=== PATIENT | male | born 1965 | race Caucasian/White ===

== ENCOUNTER 2021-02-03 13:30 | Outpatient (RCR) | payer OTHER, SELFPAY ==
--- NOTE | 2020-12-09 11:58 | OT.OP.EVAL ---
Visit Care Team Role Provider Type Indiana Jones MD Primary Care Provider Non-Staff Specialty: Medical Address: [address] [place], [address] Email: Rey Sharp MD Attending Provider Non-Staff Referring Provider Specialty: Neurology Address: [address] [place], [address] Email: Occupational Therapy Initial Evaluation OT Outpatient Adult Evaluation Start: 12/09/20 09:25 Freq: Status: Active Protocol: Document 12/09/20 09:26 AMS (Rec: 12/09/20 09:30 AMS [id number]) General Information Visit Start Time 08:30 Visit Stop Time 09:18 Total Visit Minutes 48 Plan of Care Dates 12/09/20-02/17/21 Insurance Information Prime Treatment Setting Outpatient Care Note Type Initial Evaluation Goals Treatment Initiated HEP. Written and visual instructions were provided. Instructed in passive digit/wrist flexor stretch with elbow ext and forearm supination (with focus on middle finger being in line with proximal forearm) and tendon glides. Short Term Goals 1. Patient will demonstrate improved ability to participate in meaningful activities d/t environmental modifications, use of compensatory techniques and/or adaptive equipment use; this will demonstrated by Luis's ability to verbally identify 2 to 3 different techniques/ strategies to support his ability to engage in meaningful activities in a variety of environments without support of therapist. 2. Patient will demonstrate improved ability to participate in meaningful activities d/t increased understanding of joint protection principles; this will be evidenced by Luis's verbalization of 100% understanding of joint protection principles referring to provided written/ visual materials by therapist. Support Team Assoc Goals 1. Patient will be modified independent with home exercise program utilizing provided written and visual instructions from therapist. Assessment/Plan Treatment Assessment Patient is a 55 year-old right hand dominant male referred to outpatient OT secondary to parethesia of skin and dystonia. Medical records indicate chronic paresthesia mainly involving right hand/ right thumb and muscle cramps involving the left hand with prior history of cervical spondylosis. Patient was indicated to have some features of carpal tunnel syndrome of the right and investment underwriter's cramp or hand dystonia of the left hand exacerbated by use. 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 Patient denied having EMG done and/or receiving notification of need to schedule EMG post seeing Dr. Le on September 17, 2020. Pain Assessment Grid indicated 3 out of 10 on pain scale relative to volar surface of the left hand. QuickDASH UE Outcome Score = 18.2; QuickDASH UE Work Module Score = 31.3; QuickDASH UE Sports/ Performing Arts Module Score = 37.5. Patient c/o of cramping of the left hand primarily with small object manipulation . Denial of use of splint; denial of waking up d/t right upper extremity pain/ discomfort. c/o left wrist discomfort w/ Phalen's; no report of change in sensation with reverse Phalen's. No changes reported with carpal ligament myofascial release or median nerve glide. UE shoulder ROM WNL; h/o of stiff L shoulder post involvement in amtrack derailment. 0-60 degrees active right wrist ext ; 0-70 degrees active right wrist ext; 0-55 degrees active right wrist flex; 0-60 degrees active left wrist flex . 0-35 degrees active bilateral wrist UD; 0-15 degrees active bilateral wrist RD. Slight flexion of digits at end range of wrist extension bilaterally; radial deviation observed bilaterally w/ digit/wrist flexor stretch w/ forearm supination and elbow extension. MMT Testin/5 Bilateral Wrist Extension ; 5/5 Bilateral Wrist Flexion; 5/[address]; 5/5 Bilateral Wrist UD. Avg 63.0# of force and 79.0# of force with dynamometer II brickmason contractor strength testing. Patient goals: address impaired sensation and 'cramping' of the left hand. Outpatient OT is recommended to address impaired sensation, cramping, impaired sustained grasp, decreased small obj manipulation abilities, which is impacting Luis's ability to successfully engage in meaningful activities in a variety of environments. Comment 10 weeks Treatment Frequency Once a Week Therapeutic Contents Active Range of Motion, Adaptive Equipment Education, Aquatics/Pool,Cognitive Skills Development,Functional Activities,Home Exercise Program,Joint Protection, Manual Therapy,Education, Neuromuscular Re-Education, Self-Care,Therapeutic Activities,Therapeutic Exercises,Modalities Modalities As Needed,As Prescribed Types of Modalities Contrast Bath,E-Stim,Ice Massage,Low Level Laser, Ultrasound Additional Types of Modalities Heat
--- NOTE | 2021-02-03 15:49 | OT.OP.DC ---
Visit Care Team Role Provider Type Indiana Jones MD Primary Care Provider Non-Staff Address: [address] [place], [address] Email: Rey Sharp MD Attending Provider Non-Staff Referring Provider Address: [address] [place], [address] Email: OT Outpatient OT Outpatient Adult Evaluation Start: 12/09/20 09:25 Freq: Status: Active Protocol: Document 12/09/20 09:26 AMS (Rec: 12/09/20 09:30 AMS [id number]) General Information Session Time Visit Start Time 08:30 Visit Stop Time 09:18 Total Visit Minutes 48 Visit Information Plan of Care Dates 12/09/20-02/17/21 Insurance Information Prime Setting Treatment Setting Outpatient Care Visit Type Note Type Initial Evaluation Goals Treatment Treatment Initiated HEP. Written and visual instructions were provided. Instructed in passive digit/wrist flexor stretch with elbow ext and forearm supination (with focus on middle finger being in line with proximal forearm) and tendon glides. Short Term Goals Short Term Goals 1. Patient will demonstrate improved ability to participate in meaningful activities d/t environmental modifications, use of compensatory techniques and/or adaptive equipment use; this will demonstrated by Luis's ability to verbally identify 2 to 3 different techniques/ strategies to support his ability to engage in meaningful activities in a variety of environments without support of therapist. 2. Patient will demonstrate improved ability to participate in meaningful activities d/t increased understanding of joint protection principles; this will be evidenced by Luis's verbalization of 100% understanding of joint protection principles referring to provided written/ visual materials by therapist. Senior Major Gifts Officer Goals Senior Major Gifts Officer Goals 1. Patient will be modified independent with home exercise program utilizing provided written and visual instructions from therapist. Assessment/Plan Assessment Treatment Assessment Patient is a 55 year-old right hand dominant male referred to outpatient OT secondary to parethesia of skin and dystonia. Medical records indicate chronic paresthesia mainly involving right hand/ right thumb and muscle cramps involving the left hand with prior history of cervical spondylosis. Patient was indicated to have some features of carpal tunnel syndrome of the right and internal communications writer's cramp or hand dystonia of the left hand exacerbated by use. Patient works full-time; he does maintenance for housing. Patient denied having EMG done and/or receiving notification of need to schedule EMG post seeing Dr. Le on September 17, 2020. Pain Assessment Grid indicated 3 out of 10 on pain scale relative to volar surface of the left hand. QuickDASH UE Outcome Score = 18.2; QuickDASH UE Work Module Score = 31.3; QuickDASH UE Sports/ Performing Arts Module Score = 37.5. Patient c/o of cramping of the left hand primarily with small object manipulation . Denial of use of splint; denial of waking up d/t right upper extremity pain/ discomfort. c/o left wrist discomfort w/ Phalen's; no report of change in sensation with reverse Phalen's. No changes reported with carpal ligament myofascial release or median nerve glide. UE shoulder ROM WNL; h/o of stiff L shoulder post involvement in amtrack derailment. 0-60 degrees active right wrist ext ; 0-70 degrees active right wrist ext; 0-55 degrees active right wrist flex; 0-60 degrees active left wrist flex . 0-35 degrees active bilateral wrist UD; 0-15 degrees active bilateral wrist RD. Slight flexion of digits at end range of wrist extension bilaterally; radial deviation observed bilaterally w/ digit/wrist flexor stretch w/ forearm supination and elbow extension. MMT Testin/5 Bilateral Wrist Extension ; 5/5 Bilateral Wrist Flexion; 5/[address]; 5/5 Bilateral Wrist UD. Avg 63.0# of force and 79.0# of force with dynamometer II game artist strength testing. Patient goals: address impaired sensation and 'cramping' of the left hand. Outpatient OT is recommended to address impaired sensation, cramping, impaired sustained grasp, decreased small obj manipulation abilities, which is impacting Luis's ability to successfully engage in meaningful activities in a variety of environments. Plan Comment 10 weeks Treatment Frequency Once a Week Therapeutic Contents Active Range of Motion, Adaptive Equipment Education, Aquatics/Pool,Cognitive Skills Development,Functional Activities,Home Exercise Program,Joint Protection, Manual Therapy,Education, Neuromuscular Re-Education, Self-Care,Therapeutic Activities,Therapeutic Exercises,Modalities Modalities As Needed,As Prescribed Types of Modalities Contrast Bath,E-Stim,Ice Massage,Low Level Laser, Ultrasound Additional Types of Modalities Heat Sensory Assessment Sensory Profile2 Functional Wrist/Hand Scan Hand Side OT Outpatient Treatment Note - Adult Start: 12/09/20 09:25 Freq: Status: Active Protocol: Document 02/03/21 15:41 AMS (Rec: 02/03/21 15:49 AMS [id number]) OT Outpatient Adult Treatment Note Session Time Visit Start Time 13:30 Visit Stop Time 14:00 Total Visit Minutes 30 Visit Information Plan of Care Dates 12/09/20-02/17/21 Setting Treatment Setting Outpatient Care Visit Type Note Type Treatment Note General Information General Information Patient is a 55 year-old right hand dominant male referred to outpatient OT secondary to parethesia of skin and dystonia. Medical records indicate chronic paresthesia mainly involving right hand/ right thumb and muscle cramps involving the left hand with prior history of cervical spondylosis. Patient was indicated to have some features of carpal tunnel syndrome of the right and internal communications writer's cramp or hand dystonia of the left hand exacerbated by use. - Subjective Identification Type Name Identification Reconciled With Medical Record Observations Patient had Nerve Conduction Study 12/30/20; results were as follows: bilateral (right greater than left) mild- moderate Median Neuropathy at the Wrists (Carpal Tunnel Syndrome); chronic bilateral C6-C7 radiculopathy. Patient/Caregiver Compliance with Home Good Exercise Program - Objective Short Term Goals GOALS MET: 1. Patient will demonstrate improved ability to participate in meaningful activities d/t environmental modifications, use of compensatory techniques and/or adaptive equipment use; this will demonstrated by Luis's ability to verbally identify 2 to 3 different techniques/ strategies to support his ability to engage in meaningful activities in a variety of environments without support of therapist. 2. Patient will demonstrate improved ability to participate in meaningful activities d/t increased understanding of joint protection principles; this will be evidenced by Luis's verbalization of 100% understanding of joint protection principles referring to provided written/ visual materials by therapist. Retirement Goals GOALS MET 1. Patient will be modified independent with home exercise program utilizing provided written and visual instructions from therapist. - Exercises 1 Descriptor HEP. - Assessment Assessment of Improvement Patient reports carry-over of therapy recommendations including tendon glides, passive wrist flexion/ extension with elbow extension , median nerve glides, use of night splints, and icing of wrists bilaterally at night. Patient also instructed in myofascial release for carpal tunnel; provided written and visual instructions on this date. Patient education re: basic joint protection principles and equipment that may be beneficial (avoid awkward/abnormal positioning of wrists/hands). Patient denied questions and verbalized understanding. Recommend seeing PT to address chronic bilateral C6-C7 radiculopathy. - Plan Therapy Recommendations Discharge from Occupational Therapy
--- NOTE | 2021-02-03 16:01 | OT.OP.DC ---
Visit Care Team Role Provider Type Indiana Jones MD Primary Care Provider Non-Staff Address: [address] [place], [address] Email: Rey Sharp MD Attending Provider Non-Staff Referring Provider Address: [address] [place], [address] Email: OT Outpatient OT Outpatient Adult Evaluation Start: 12/09/20 09:25 Freq: Status: Active Protocol: Document 12/09/20 09:26 AMS (Rec: 12/09/20 09:30 AMS [id number]) General Information Session Time Visit Start Time 08:30 Visit Stop Time 09:18 Total Visit Minutes 48 Visit Information Plan of Care Dates 12/09/20-02/17/21 Insurance Information Prime Setting Treatment Setting Outpatient Care Visit Type Note Type Initial Evaluation Goals Treatment Treatment Initiated HEP. Written and visual instructions were provided. Instructed in passive digit/wrist flexor stretch with elbow ext and forearm supination (with focus on middle finger being in line with proximal forearm) and tendon glides. Short Term Goals Short Term Goals 1. Patient will demonstrate improved ability to participate in meaningful activities d/t environmental modifications, use of compensatory techniques and/or adaptive equipment use; this will demonstrated by Luis's ability to verbally identify 2 to 3 different techniques/ strategies to support his ability to engage in meaningful activities in a variety of environments without support of therapist. 2. Patient will demonstrate improved ability to participate in meaningful activities d/t increased understanding of joint protection principles; this will be evidenced by Luis's verbalization of 100% understanding of joint protection principles referring to provided written/ visual materials by therapist. Baseball Umpire [employer] Goals [employer] Goals 1. Patient will be modified independent with home exercise program utilizing provided written and visual instructions from therapist. Assessment/Plan Assessment Treatment Assessment Patient is a 55 year-old right hand dominant male referred to outpatient OT secondary to parethesia of skin and dystonia. Medical records indicate chronic paresthesia mainly involving right hand/ right thumb and muscle cramps involving the left hand with prior history of cervical spondylosis. Patient was indicated to have some features of carpal tunnel syndrome of the right and board writer's cramp or hand dystonia of the left hand exacerbated by use. Patient works full-time; he does maintenance for housing. Patient denied having EMG done and/or receiving notification of need to schedule EMG post seeing Dr. Le on September 17, 2020. Pain Assessment Grid indicated 3 out of 10 on pain scale relative to volar surface of the left hand. QuickDASH UE Outcome Score = 18.2; QuickDASH UE Work Module Score = 31.3; QuickDASH UE Sports/ Performing Arts Module Score = 37.5. Patient c/o of cramping of the left hand primarily with small object manipulation . Denial of use of splint; denial of waking up d/t right upper extremity pain/ discomfort. c/o left wrist discomfort w/ Phalen's; no report of change in sensation with reverse Phalen's. No changes reported with carpal ligament myofascial release or median nerve glide. UE shoulder ROM WNL; h/o of stiff L shoulder post involvement in amtrack derailment. 0-60 degrees active right wrist ext ; 0-70 degrees active right wrist ext; 0-55 degrees active right wrist flex; 0-60 degrees active left wrist flex . 0-35 degrees active bilateral wrist UD; 0-15 degrees active bilateral wrist RD. Slight flexion of digits at end range of wrist extension bilaterally; radial deviation observed bilaterally w/ digit/wrist flexor stretch w/ forearm supination and elbow extension. MMT Testin/5 Bilateral Wrist Extension ; 5/5 Bilateral Wrist Flexion; 5/[address]; 5/5 Bilateral Wrist UD. Avg 63.0# of force and 79.0# of force with dynamometer II product safety specialist strength testing. Patient goals: address impaired sensation and 'cramping' of the left hand. Outpatient OT is recommended to address impaired sensation, cramping, impaired sustained grasp, decreased small obj manipulation abilities, which is impacting Luis's ability to successfully engage in meaningful activities in a variety of environments. Plan Comment 10 weeks Treatment Frequency Once a Week Therapeutic Contents Active Range of Motion, Adaptive Equipment Education, Aquatics/Pool,Cognitive Skills Development,Functional Activities,Home Exercise Program,Joint Protection, Manual Therapy,Education, Neuromuscular Re-Education, Self-Care,Therapeutic Activities,Therapeutic Exercises,Modalities Modalities As Needed,As Prescribed Types of Modalities Contrast Bath,E-Stim,Ice Massage,Low Level Laser, Ultrasound Additional Types of Modalities Heat Sensory Assessment Sensory Profile2 Functional Wrist/Hand Scan Hand Side OT Outpatient Treatment Note - Adult Start: 12/09/20 09:25 Freq: Status: Active Protocol: Document 02/03/21 15:41 AMS (Rec: 02/03/21 15:49 AMS [id number]) OT Outpatient Adult Treatment Note Session Time Visit Start Time 13:30 Visit Stop Time 14:00 Total Visit Minutes 30 Visit Information Plan of Care Dates 12/09/20-02/17/21 Setting Treatment Setting Outpatient Care Visit Type Note Type Treatment Note General Information General Information Patient is a 55 year-old right hand dominant male referred to outpatient OT secondary to parethesia of skin and dystonia. Medical records indicate chronic paresthesia mainly involving right hand/ right thumb and muscle cramps involving the left hand with prior history of cervical spondylosis. Patient was indicated to have some features of carpal tunnel syndrome of the right and board writer's cramp or hand dystonia of the left hand exacerbated by use. - Subjective Identification Type Name Identification Reconciled With Medical Record Observations Patient had Nerve Conduction Study 12/30/20; results were as follows: bilateral (right greater than left) mild- moderate Median Neuropathy at the Wrists (Carpal Tunnel Syndrome); chronic bilateral C6-C7 radiculopathy. Patient/Caregiver Compliance with Home Good Exercise Program - Objective Short Term Goals GOALS MET: 1. Patient will demonstrate improved ability to participate in meaningful activities d/t environmental modifications, use of compensatory techniques and/or adaptive equipment use; this will demonstrated by Luis's ability to verbally identify 2 to 3 different techniques/ strategies to support his ability to engage in meaningful activities in a variety of environments without support of therapist. 2. Patient will demonstrate improved ability to participate in meaningful activities d/t increased understanding of joint protection principles; this will be evidenced by Luis's verbalization of 100% understanding of joint protection principles referring to provided written/ visual materials by therapist. [employer] Goals GOALS MET 1. Patient will be modified independent with home exercise program utilizing provided written and visual instructions from therapist. - Exercises 1 Descriptor HEP. - Assessment Assessment of Improvement Patient reports carry-over of therapy recommendations including tendon glides, passive wrist flexion/ extension with elbow extension , median nerve glides, use of night splints, and icing of wrists bilaterally at night. Patient also instructed in myofascial release for carpal tunnel; provided written and visual instructions on this date. Patient education re: basic joint protection principles and equipment that may be beneficial (avoid awkward/abnormal positioning of wrists/hands). Patient denied questions and verbalized understanding. Recommend seeing PT to address chronic bilateral C6-C7 radiculopathy. - Plan Therapy Recommendations Discharge from Occupational Therapy
== END 2021-04-13 09:37 ==
LOC: OT 13:30
PROVIDERS: PCP Student in an Organized Health Care Education/Training Program; Referring Provider Psychiatry & Neurology Neurology; Visit Provider Psychiatry & Neurology Neurology
DX: R20.2 Paresthesia of skin (principal); G24.9 Dystonia, unspecified
CPT/HCPCS: 97110; 97165; 97530

== ENCOUNTER → 2021-05-25 18:36 | Outpatient (CLI) | payer OTHER, SELFPAY ==
--- NOTE | 2021-05-25 18:38 | DI.MRI.S_ITS ---
PROCEDURE: MR CERVICAL SPINE WO CON INDICATIONS: CERVICAL RADICULOPATHY TECHNIQUE: Noncontrast sagittal T1 spin echo and T2 fast spin echo, sagittal STIR, foraminal oblique sagittal T2 fast spin echo, and axial gradient echo or T2 fast spin echo through the cervical spine. COMPARISON: None. FINDINGS: Image quality: Excellent. Alignment and Curvature: Trace degenerative anterolisthesis of C3 on C4 and C5 on C6. Bone Marrow: Marrow demonstrates normal overall signal. Spinal Cord: Visualized spinal cord has normal size and signal. No cerebellar tonsillar herniation. Paraspinous Soft Tissues: No paravertebral masses. Prevertebral soft tissues are normal in thickness. C2-C3: Bilateral facet hypertrophy, right greater than left. No canal stenosis. Moderate bilateral foraminal stenosis with mild flattening deformity on the exiting bilateral C3 nerve roots. C3-C4: Mild central posterior disc protrusion indenting on the ventral cord. AP diameter of the canal is 8.8 mm. Bilateral uncovertebral joint hypertrophy and facet hypertrophy, resulting in moderate to severe bilateral foraminal narrowing and a degree of bilateral C4 foraminal nerve root impingement. C4-C5: Moderate right paracentral disc protrusion and left paracentral disc protrusion results in severe central canal stenosis and bilateral lateral recess stenosis. AP diameter of the canal is 7.4 mm. Bilateral uncovertebral joint hypertrophy and facet hypertrophy. There is a small left foraminal disc protrusion. There is severe right and marked left foraminal narrowing with bilateral C5 foraminal nerve root impingement. C5-C6: Large diffuse disc bulge plus congenitally short pedicles results in severe central canal and lateral recess stenosis. AP diameter of the canal is approximately 5.7 mm. There is a large right foraminal disc plus osteophyte which obliterates the right C6 nerve root in the right foramen. There is left uncovertebral joint hypertrophy and facet hypertrophy resulting in severe left foraminal narrowing and left foraminal C6 nerve root impingement. C6-C7: There are right paracentral and left paracentral disc protrusions. There are short pedicles. There is severe central canal stenosis. AP diameter of the canal is 6.3 mm. There is bilateral uncovertebral joint hypertrophy. There is a right foraminal disc extrusion which obliterates the right C7 nerve root in the right foramen. Left uncovertebral joint hypertrophy and superimposed disc bulge results in severe left foraminal narrowing and left foraminal C7 nerve root impingement. C7-T1: Short pedicles plus mild disc bulge results in mild canal stenosis. AP diameter of the canal is 9.1 mm. Mild left foraminal narrowing. IMPRESSION: 1. There is extensive cervical spondylitic change superimposed on congenitally short pedicles. 2. Canal stenosis is mild at C3-C4, severe at C4-C5, C5-C6, and C6-C7, and mild at C7-T1. 3. Extensive multilevel foraminal narrowing with multilevel foraminal nerve root impingement as described above. Findings include a left foraminal disc protrusion at C4-C5, right foraminal disc plus osteophyte at C5-C6, and right foraminal disc extrusion at C6-C7. Dictated by: Pritesh Jean M.D. on 05/26/2021 at 8:23 Approved by: Pritesh Jean M.D. on 05/26/2021 at 8:42
== END ==
PROVIDERS: PCP Student in an Organized Health Care Education/Training Program; Referring Provider Psychiatry & Neurology Neurology; Visit Provider Psychiatry & Neurology Neurology
DX: M48.02 Spinal stenosis, cervical region (principal); M47.22 Other spondylosis with radiculopathy, cervical region; M50.121 Cervical disc disorder at C4-C5 level with radiculopathy
CPT/HCPCS: 72141

== ENCOUNTER 2022-07-06 17:08 | Emergency (ER) | payer OTHER, SELFPAY ==
[2022-07-06 18:05] VITALS: BP 153/97; PULSE 64; RESP 22; TEMP 36.6; O2SAT 100; BMI 40.3
--- NOTE | 2022-07-06 18:05 | DI.RAD.S_ITS ---
PROCEDURE: XR CHEST 1V INDICATIONS: chest pain TECHNIQUE: One view of the chest was acquired. COMPARISON: None. FINDINGS: Surgical changes and devices: Cervical spine fixation hardware is seen. Lungs and pleura: Lungs are clear. No pleural effusions or pneumothorax. Mediastinum: Mediastinal contours appear normal. Heart size is normal. Bones and chest wall: No suspicious bony lesions. Age-appropriate bony degenerative changes are seen. Overlying soft tissues appear unremarkable. IMPRESSION: No acute cardiopulmonary process is seen. Postoperative and degenerative changes are seen. Dictated by: Yuri Hannon M.D. on 07/06/2022 at 17:46 Approved by: Yuri Hannon M.D. on 07/06/2022 at 17:47
--- NOTE | 2022-07-06 18:27 | DI.CT.S_ITS ---
PROCEDURE: CT HEAD/BRAIN WO CON INDICATIONS: dizzy TECHNIQUE: Noncontrast 4.5 mm thick angled axial sections acquired from the foramen magnum to the vertex, with coronal and sagittal reformats. For radiation dose reduction, the following was used: automated exposure control, adjustment of mA and/or kV according to patient size. COMPARISON: [facility], CR, XR CHEST 1V, 07/06/2022, 18:12. FINDINGS: Image quality: Excellent. CSF spaces: Basal cisterns are patent. No extra-axial fluid collections. Ventricles are normal in size and shape. Brain: No midline shift. No intracranial masses or hemorrhage. Puga-white matter interface is normal. Skull and face: Calvarium and visualized facial bones are intact, without suspicious lesions. Sinuses: Visualized sinuses and mastoids are clear. Bullosa are incidentally noted. IMPRESSION: Unremarkable noncontrast head CT, without a cause of dizziness identified. Dictated by: Yuri Hannon M.D. on 07/06/2022 at 17:47 Approved by: Yuri Hannon M.D. on 07/06/2022 at 17:48
[2022-07-06 19:12] LABS: COVID-19 CEPHEID 4-PLEX PCR Negative (Negative); Influenza A - CEPHEID Flu A NEGATIVE (NEGATIVE); Influenza B - CEPHEID Flu B NEGATIVE (NEGATIVE); Respiratory Syncytial Virus Negative (Negative)
[2022-07-06 20:41] LABS: Add Manual Diff / Slide Review NO; Basophils Absolute Auto 100 /uL (0-100); Basophils Percent Auto 0.6 % (0-2); Eosinophils Absolute Auto 200 /uL (0-450); Eosinophils Percent Auto 1.6 % (2-4); Hematocrit 43.8 % (41-53); Hemoglobin 14.9 g/dL (13.5-17.5); Lymphocytes Absolute Auto 2400 /uL (1100-4500); Lymphocytes Percent Auto 23.3 % (25-40); Mean Corpuscular Volume 85.5 fL (80-100); Monocytes Absolute Auto 600 /uL (0-900); Monocytes Percent Auto 5.9 % (3-14); Neutrophils Absolute Auto 7100 /uL (1500-7000); Neutrophils Percent Auto 68.6 % (50-75); Platelet Count 221 X10^3/uL (150-400); Red Blood Cell Count 5.12 X10^6/uL (4.5-5.9); Red Cell Distribution Width 13.2 % (11.6-14.8); White Blood Cell Count 10.4 X10^3/uL (4.5-11.0)
[2022-07-06 20:46] LABS: INR 1.1 (0.9-1.3); Prothrombin Time 12.6 SECONDS (10.1-12.7)
[2022-07-06 20:49] LABS: PTT Partial Thromboplastin Tim 37 SECONDS (26-36)
[2022-07-06 20:50] LABS: Alanine Aminotransferase 32 IU/L (<50); Albumin 4.5 g/dL (3.5-5.0); Albumin Globulin Ratio 1.3 (1.0-2.8); Alkaline Phosphatase 106 U/L (38-126); Aspartate Aminotransferase 25 IU/L (17-59); Bilirubin Total 0.6 mg/dL (0.2-1.3); Blood Urea Nitrogen 16 mg/dL (9-20); Calcium 9.2 mg/dL (8.4-10.2); Carbon Dioxide 28 mmol/L (22-32); Chloride 101 mmol/L (98-107); Creatine Kinase 152 U/L (55-170); Estimated Glomerular Filt Rate > 60 mL/min (>60); Globulin 3.4 g/dL (1.7-4.1); Glucose 96 mg/dL (70-100); HEMOLYSIS < 15 (0-50); Lipase 81 U/L (23-300); Potassium 4.1 mmol/L (3.4-5.1); Sodium 138 mmol/L (137-145); Total Protein 7.9 g/dL (6.3-8.2)
[2022-07-06 21:02] LABS: Troponin I < 0.012 ng/mL (0.01-0.034)
[2022-07-06 21:07] LABS: CKMB % Relative Index 0.8 % (1.5-5.0); Creatine Kinase MB 1.14 ng/mL (<2.37)
--- NOTE | 2022-07-06 22:59 | ED.DIZZY ---
HPI - Dizziness General Chief Complaint: Dizziness Stated Complaint: bad dizzy spells Time Seen by Provider: 07/06/22 22:57 Source: patient Mode of arrival: Family Vehicle History of Present Illness HPI Narrative: Patient is a 56-year-old male history of hypothyroidism presenting today with dizziness. He said he was in his normal state of health yesterday woke up this morning and felt dizzy. It is definitely worse position. Denies any numbness tingling or weakness. No chest pain or palpitations. He is not passed out. He said he previously had this when he had an ear infection. He denies any ear pain. Related Data Previous Rx's Medication Instructions Recorded meclizine 25 mg tablet 25 mg PO TID PRN dizziness #10 tabs 07/07/22 Allergies Allergy/AdvReac Type Severity Reaction Status Date / Time No Known Drug Allergies Allergy Verified 07/06/22 18:17 Review of Systems Review of Systems ROS Unobtainable: All systems reviewed & are unremarkable except as noted in HPI and below Patient History Social History Smoking Status: Never smoker Smoking Status: Never smoker alcohol intake frequency: holidays/special occasions only Substance Use Type: does not use Exam Initial Vital Signs Initial Vital Signs: Vital Signs Temperature 97.8 F 07/06/22 18:05 Pulse Rate 64 07/06/22 18:05 Respiratory Rate 22 07/06/22 18:05 Blood Pressure 153/97 H 07/06/22 18:05 Pulse Oximetry 100 07/06/22 18:05 Oxygen Delivery Method Room Air 07/06/22 18:05 GENERAL: Alert pleasant 56-year-old male and in no acute distress. HEENT: Head atraumatic,EOMI, pupils reactive, face symmetric, moist mucous membranes CARDIOVASCULAR: Regular rate and rhythm without murmurs, rubs or gallops. RESPIRATORY: Breath sounds equal bilaterally, no wheezes rales or rhonchi. ABDOMEN: Soft, nontender. Normoactive bowel sounds all 4 quadrants. No guarding or rebound. EXTREMITIES: Normal range of motion, no clubbing or edema. Neurovascularly intact NEUROLOGICAL: Alert and oriented x4.Normal gait and speech. Cranial nerves II through XII grossly intact. Good [id number], good [id number], strength equal bilaterally, no dysarthria or aphasia, sensation in tact to soft touch bilaterally, no visual changes, no facial droop SKIN: Warm, dry, no laceration, no petechiae, no rashes or lesions. Scores NIH Stroke Scale Level of Conciousness: Alert, keenly responsive Ask month/age: Answers both questions correctly. Open/close eyes, close hand: Performs both tasks correctly Best gaze horizontal: Normal Visual chisholm: No visual loss Facial palsy: Normal symetrical movement Left arm drift: No drift for full 10 sec Right arm drift: No drift for full 10 sec Left leg drift: No drift for full 5 sec Right leg drift: No drift for full 5 sec Limb ataxia: Absent Sensory on face/arms/legs: Normal, no sensory loss Best language: No aphasia, normal Dysarthria: Normal Extinction or inattention: No abnormality Total NIH Stroke scale score: 0 Course Orders Ordered: ED Orders 07/06/22 18:05 XR chest 1V Stat EKG-12 Lead Stat 07/06/22 18:27 CT head/brain wo con Stat 07/06/22 18:32 Covid-19 + FLU A/B + RSV - PCR Stat 07/06/22 20:17 Complete Blood Count AUTO DIFF Stat Comprehensive Metabolic Panel Stat Lipase Stat Magnesium Stat PTT Partial Thromboplastin David Stat Prothrombin Time INR Stat Troponin & CK Cardiac Panel Stat Discontinued Medications Aspirin (Aspirin 81 Mg Chew Tab) 324 mg PO NOW ONE Stop: 07/06/22 18:06 Last Admin: 07/06/22 21:03 Dose: Not Given Documented By: KLS Sodium Chloride (Normal Saline 0.9%) 1,000 mls @ 1,000 mls/hr IV BOLUS ONE Stop: 07/07/22 00:08 Last Infusion: 07/07/22 00:04 Dose: 0 mls/hr Documented By: Admin: 07/06/22 23:17 Dose: 1,000 mls/hr Documented By: AP Meclizine HCl (Meclizine Hcl 12.5 Mg Tablet) 25 mg PO NOW ONE Stop: 07/06/22 23:10 Last Admin: 07/06/22 23:17 Dose: 25 mg Documented By: AP Vital Signs Vital signs: Vital Signs - 8 hr 07/06/22 23:20 07/06/22 23:30 07/06/22 23:57 Temperature Pulse Rate 80 73 Respiratory Rate 21 12 Blood Pressure 153/86 H Pulse Oximetry 100 100 07/06/22 23:57 07/07/22 00:00 07/07/22 00:00 Temperature Pulse Rate 73 73 Respiratory Rate 14 14 Blood Pressure 145/92 H Pulse Oximetry 100 100 07/07/22 00:30 07/07/22 00:30 Temperature 97.7 F Pulse Rate 74 Respiratory Rate 10 L Blood Pressure 157/86 H Pulse Oximetry 99 MDM - Dizziness Lab Data 07/06/22 20:17 07/06/22 20:17 Labs: Lab Results 07/06/22 07/06/22 07/06/22 Range/Units 18:32 20:17 20:17 WBC 10.4 (4.5-11.0) X10^3/uL RBC 5.12 (4.5-5.9) X10^6/uL Hgb 14.9 (13.5-17.5) g/dL Hct 43.8 (41-53) % MCV 85.5 (80-100) fL MCH 29.0 (26-34) PG MCHC 34.0 (30-36) % RDW 13.2 (11.6-14.8) % Plt Count 221 (150-400) X10^3/uL Neut % (Auto) 68.6 (50-75) % Lymph % (Auto) 23.3 L (25-40) % Nuckolls % (Auto) 5.9 (3-14) % Eos % (Auto) 1.6 L (2-4) % Baso % (Auto) 0.6 (0-2) % Neut # (Auto) 7100 H (4992-6530) /uL Lymph # (Auto) 2400 (8301-7891) /uL Nuckolls # (Auto) 600 (0-900) /uL Eos # (Auto) 200 (0-450) /uL Baso # (Auto) 100 (0-100) /uL PT 12.6 (10.1-12.7) SECONDS INR 1.1 (0.9-1.3) APTT 37 H (26-36) SECONDS Sodium (137-145) mmol/L Potassium (3.4-5.1) mmol/L Chloride (98-107) mmol/L Carbon Dioxide (22-32) mmol/L BUN (9-20) mg/dL Creatinine (0.66-1.25) mg/dL Estimated GFR (>60) mL/min BUN/Creatinine Ratio (6-22) Glucose (70-100) mg/dL Calcium (8.4-10.2) mg/dL Magnesium (1.6-2.3) mg/dL Total Bilirubin (0.2-1.3) mg/dL AST (17-59) IU/L ALT (<50) IU/L Alkaline Phosphatase (38-126) U/L Total Creatine Kinase (55-170) U/L CK-MB (CK-2) (<2.37) ng/mL CK-MB (CK-2) Rel Index (1.5-5.0) % Troponin I (0.01-0.034) ng/mL Total Protein (6.3-8.2) g/dL Albumin (3.5-5.0) g/dL Globulin (1.7-4.1) g/dL Albumin/Globulin Ratio (1.0-2.8) Lipase (23-300) U/L SARS-CoV-2 (PCR) Negative (Negative) Influenza A (RT-PCR) Flu a negative (NEGATIVE) Influenza B (RT-PCR) Flu b negative (NEGATIVE) RSV (PCR) Negative (Negative) 07/06/22 Range/Units 20:17 WBC (4.5-11.0) X10^3/uL RBC (4.5-5.9) X10^6/uL Hgb (13.5-17.5) g/dL Hct (41-53) % MCV (80-100) fL MCH (26-34) PG MCHC (30-36) % RDW (11.6-14.8) % Plt Count (150-400) X10^3/uL Neut % (Auto) (50-75) % Lymph % (Auto) (25-40) % Nuckolls % (Auto) (3-14) % Eos % (Auto) (2-4) % Baso % (Auto) (0-2) % Neut # (Auto) (2649-8973) /uL Lymph # (Auto) (6941-4159) /uL Nuckolls # (Auto) (0-900) /uL Eos # (Auto) (0-450) /uL Baso # (Auto) (0-100) /uL PT (10.1-12.7) SECONDS INR (0.9-1.3) APTT (26-36) SECONDS Sodium 138 (137-145) mmol/L Potassium 4.1 (3.4-5.1) mmol/L Chloride 101 (98-107) mmol/L Carbon Dioxide 28 (22-32) mmol/L BUN 16 (9-20) mg/dL Creatinine 0.84 (0.66-1.25) mg/dL Estimated GFR > 60 (>60) mL/min BUN/Creatinine Ratio 19.0 (6-22) Glucose 96 (70-100) mg/dL Calcium 9.2 (8.4-10.2) mg/dL Magnesium 2.0 (1.6-2.3) mg/dL Total Bilirubin 0.6 (0.2-1.3) mg/dL AST 25 (17-59) IU/L ALT 32 (<50) IU/L Alkaline Phosphatase 106 (38-126) U/L Total Creatine Kinase 152 (55-170) U/L CK-MB (CK-2) 1.14 (<2.37) ng/mL CK-MB (CK-2) Rel Index 0.8 L (1.5-5.0) % Troponin I < 0.012 (0.01-0.034) ng/mL Total Protein 7.9 (6.3-8.2) g/dL Albumin 4.5 (3.5-5.0) g/dL Globulin 3.4 (1.7-4.1) g/dL Albumin/Globulin Ratio 1.3 (1.0-2.8) Lipase 81 (23-300) U/L SARS-CoV-2 (PCR) (Negative) Influenza A (RT-PCR) (NEGATIVE) Influenza B (RT-PCR) (NEGATIVE) RSV (PCR) (Negative) Imaging Data Chest x-ray: Radiologist's Impression: PROCEDURE:? XR CHEST 1V ? INDICATIONS:? chest pain ? TECHNIQUE:? One view of the chest was acquired.? ? COMPARISON:? None. ? FINDINGS:? ? Surgical changes and devices:? Cervical spine fixation hardware is seen. ? Lungs and pleura:? Lungs are clear.? No pleural effusions or pneumothorax.? ? Mediastinum:? Mediastinal contours appear normal.? Heart size is normal.? ? Bones and chest wall:? No suspicious bony lesions.? Age-appropriate bony degenerative changes are seen.? Overlying soft tissues appear unremarkable.? ? ? IMPRESSION:? ? No acute cardiopulmonary process is seen.? ? Postoperative and degenerative changes are seen.? ? ? Dictated by: Yuri Hannon M.D. on 07/06/2022 at 17:46 ? ? CT scan - head: Radiologist's Impression: PROCEDURE:? CT HEAD/BRAIN WO CON ? INDICATIONS:? dizzy ? TECHNIQUE:? Noncontrast 4.5 mm thick angled axial sections acquired from the foramen magnum to the vertex, with coronal and sagittal reformats.? For radiation dose reduction, the following was used:? automated exposure control, adjustment of mA and/or kV according to patient size.? ? COMPARISON:? [facility], CR, XR CHEST 1V, 07/06/2022, 18:12. ? FINDINGS:? Image quality:? Excellent.? ? CSF spaces:? Basal cisterns are patent.? No extra-axial fluid collections.? Ventricles are normal in size and shape.? ? Brain:? No midline shift.? No intracranial masses or hemorrhage.? Puga-white matter interface is normal.? ? Skull and face:? Calvarium and visualized facial bones are intact, without suspicious lesions.? ? Sinuses:? Visualized sinuses and mastoids are clear.? Bullosa are incidentally noted. ? ? IMPRESSION:? Unremarkable noncontrast head CT, without a cause of dizziness identified.? ? ? Dictated by: Yuri Hannon M.D. on 07/06/2022 at 17:47 ? ? ECG Data Interpretation: Sinus rhythm rate 65 SD interval 152 QRS 158 QTC 468 left bundle-branch block noted no ST changes no Sgarbossa criteria no priors to compare MDM Narrative Medical decision making narrative: Patient is a 56-year-old male comorbidities presenting today with dizziness. It seems very positional. Denies any nausea vomiting numbness tingling or weakness. He is NIH stroke scale of 0. Name work overall reassuring without leukocytosis anemia electrolyte abnormality or LUIS and a negative troponin. EKG does not show any abnormality. Head CT is also negative. When I evaluated him after multiple hours of being in the ED upon sitting up he was still extremely dizzy. He is given a L of fluid and meclizine. Afterward patient is able to ambulate in the ED without any difficulty. This time was posterior CVA however patient's symptoms seem to be pretty minimal and very positional. This is consistent benign paroxysmal positional vertigo. Discharge Plan Departure Patient Disposition: Home Clinical Impression: Vertigo Instructions: DI for Vertigo Activity Restrictions/Additional Instructions: *You have been diagnosed with vertigo *What to do: At this time and glad to feeling better. Blood work CT scan are reassuring. Take it easy this should start feeling better for you *Continue to take medications as directed Meclizine 25 mg every 8 hours if needed for dizziness *Follow up with your primary care provider in 2-3 days or call [phone] *Return to ER if you should have increasing dizziness weakness numbness tingling fall or any new, worsening or concerning symptoms Prescriptions: New meclizine 25 mg tablet 25 mg PO TID PRN (Reason: dizziness) Qty: 10 0RF Referrals: Indiana Jones MD [Primary Care Provider] - Stand Alone Forms: Patient Portal/API, Work Release Note
[2022-07-06] MEDS: SODIUM CHLORIDE 0.9% 1,000 ML 1000 ML IV (23:17)
[2022-07-06] MEDS: MECLIZINE HCL 12.5 MG TABLET 25 MG PO (23:17)
[2022-07-06 23:20] VITALS: PULSE 80; RESP 21; O2SAT 100
[2022-07-06 23:30] VITALS: PULSE 73; RESP 12; O2SAT 100
--- NOTE | 2022-07-06 23:39 | PC.NURSE ---
Pt requested ASA & 4 baby aspirin were given but were not documented in MAR [id number] order had .
[2022-07-06 23:57] VITALS: BP 153/86; PULSE 73; RESP 14; O2SAT 100
[2022-07-07] VITALS: BP 145/92; PULSE 73; RESP 14; O2SAT 100
[2022-07-07 00:30] VITALS: BP 157/86; PULSE 74; RESP 10; TEMP 36.5; O2SAT 99
--- NOTE | 2022-07-07 00:42 | PC.NURSE ---
Pt ambulated around entire dept w/o c/o dizziness, vertigo.
== END 2022-07-07 00:44 | disposition home or self-care (01) ==
PROVIDERS: Emergency Medicine; Emergency Provider Emergency Medicine; PCP Student in an Organized Health Care Education/Training Program
DX: R42 Dizziness and giddiness (principal); R07.9 Chest pain, unspecified; Z20.822 Contact with and (suspected) exposure to COVID-19
CPT/HCPCS: 0241U; 70450; 71045; 80053; 82550; 82553; 83690; 83735; 84484; 85025; 85610; 85730; 93005; 93010; 99284

== ENCOUNTER 2022-08-26 14:48 | Emergency (ER) | payer OTHER, SELFPAY ==
[2022-08-26 14:58] VITALS: BP 131/61; PULSE 90; RESP 18; TEMP 37.1; O2SAT 97; BMI 38.7
[2022-08-26 16:51] VITALS: BP 151/81; PULSE 89; RESP 19; O2SAT 97
--- NOTE | 2022-08-26 17:06 | ED.UPPEXIN ---
HPI - Extremity Injury (Upper) <Maria Isabel Diaz PA-C - Last Filed: 08/26/22 18:45> General Chief Complaint: Extremity Injury, Upper Stated Complaint: Pain in left arm, hand turning blue Time Seen by Provider: 08/26/22 15:26 Source: patient Mode of arrival: Ambulatory History of Present Illness HPI narrative: This is a well-appearing 56-year-old male with a history of previous back surgeries and spinal fixation of the cervical spine who presents with concern for an episode of left arm pain with hand cramping and his forearm turning bluish in color. Patient states that this happened while he was driving today and thus was unable to ?on cramp? his fingers and stretch out the muscle cramp and spasm he was having in his hand. States he has had somewhat similar symptoms in the past before he had his cervical spine surgery last year but has not had this problem since. 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 He states that this resolved on its own within about 30 minutes time and color returned to normal. Denies any chest pain, shortness of breath dizziness, lightheadedness, palpitations or any other symptoms along with this. States he is otherwise been in his usual state of health Related Data Previous Rx's Medication Instructions Recorded meclizine 25 mg tablet 25 mg PO TID PRN dizziness #10 tabs 07/07/22 Allergies Allergy/AdvReac Type Severity Reaction Status Date / Time No Known Drug Allergies Allergy Verified 08/26/22 15:03 Review of Systems <Maria Isabel Diaz PA-C - Last Filed: 08/26/22 18:45> Review of Systems Narrative: See HPI Patient History <Maria Isabel Diaz PA-C - Last Filed: 08/26/22 18:45> Social History Smoking Status: Never smoker Smoking Status: Never smoker alcohol intake frequency: holidays/special occasions only Substance Use Type: does not use Exam <Maria Isabel Diaz PA-C - Last Filed: 08/26/22 18:45> Narrative Exam Narrative: GENERAL: 56 year old patient appears stated age. Well-developed patient, in mild distress. HEAD: Atraumatic. Normocephalic. EYES: Pupils equal round and reactive. Extraocular motions intact. No scleral icterus. No injection or drainage. ENT: Nose without bleeding, purulent drainage. Airway patent. NECK: Trachea midline. Non tender CARDIOVASCULAR: Regular rate and rhythm without murmurs, gallops, or rubs. RESPIRATORY: Clear to auscultation. Breath sounds equal bilaterally. No wheezes, rales, or rhonchi. GASTROINTESTINAL: Abdomen soft, non-tender, nondistended. EXTREMITIES: Strong bilateral radial pulses, equal retail warehouse associate strengths bilaterally, there is no pain or tenderness with palpation of the forearm or hand. Skin is pink warm dry and consistent color bilaterally in forearms and hands. There is no swelling noted. There is normal active range of motion. Capillary refills less than 2 seconds. No edema or joint tenderness. NEURO: AOx3. SKIN: No rash or erythema of visible areas Initial Vital Signs Initial Vital Signs: Vital Signs Temperature 98.7 F 08/26/22 14:58 Pulse Rate 90 08/26/22 14:58 Respiratory Rate 18 08/26/22 14:58 Blood Pressure 131/61 08/26/22 14:58 Pulse Oximetry 97 08/26/22 14:58 Oxygen Delivery Method Room Air 08/26/22 14:58 <Janett Gregory DO - Last Filed: 08/28/22 07:30> Initial Vital Signs Initial Vital Signs: Vital Signs Temperature 98.7 F 08/26/22 14:58 Pulse Rate 90 08/26/22 14:58 Respiratory Rate 18 08/26/22 14:58 Blood Pressure 131/61 08/26/22 14:58 Pulse Oximetry 97 08/26/22 14:58 Oxygen Delivery Method Room Air 08/26/22 14:58 Scores <Maria Isabel Diaz PA-C - Last Filed: 08/26/22 18:45> HEART Score Heart Score history: Slightly Suspicious Heart Score EKG: Normal (No change from baseline) Heart Score Age: 45-64 years old Heart Score risk factors: 1-2 risk factors Heart Score troponin: < or = to normal limit Heart Score Total: 2 <DO Bianca Funez Last Filed: 08/28/22 07:30> HEART Score Heart Score Total: 2 Course <Maria Isabel Diaz PA-C - Last Filed: 08/26/22 18:45> Orders Ordered: ED Orders 08/26/22 17:05 EKG-12 Lead Stat 08/26/22 17:27 Complete Blood Count AUTO DIFF Stat Comprehensive Metabolic Panel Stat Troponin & CK Cardiac Panel Stat Vital Signs Vital signs: Vital Signs - 8 hr 08/26/22 14:58 08/26/22 16:51 08/26/22 18:46 Temperature 98.7 F Pulse Rate 90 89 77 Respiratory Rate 18 19 18 Blood Pressure 131/61 151/81 H 135/85 Pulse Oximetry 97 97 99 Oxygen Delivery Method Room Air Room Air Room Air <Janett Gregory DO - Last Filed: 08/28/22 07:30> Orders Ordered: ED Orders 08/26/22 17:05 EKG-12 Lead Stat 08/26/22 17:27 Complete Blood Count AUTO DIFF Stat Comprehensive Metabolic Panel Stat Troponin & CK Cardiac Panel Stat Vital Signs Vital signs: Vital Signs - 8 hr 08/26/22 14:58 08/26/22 16:51 08/26/22 18:46 Temperature 98.7 F Pulse Rate 90 89 77 Respiratory Rate 18 19 18 Blood Pressure 131/61 151/81 H 135/85 Pulse Oximetry 97 97 99 Oxygen Delivery Method Room Air Room Air Room Air MDM - Extremity Injury (Upper) <Maria Isabel Diaz PA-C - Last Filed: 08/26/22 18:45> Differential Diagnosis Differential diagnosis: Likely other (Muscle cramp) Medical Records Attestation: I reviewed the patient's medical records. Lab Data Attestation: I reviewed the patient's lab results. 08/26/22 17:27 08/26/22 17:27 Labs: Lab Results 08/26/22 08/26/22 Range/Units 17:27 17:27 WBC 10.1 (4.5-11.0) X10^3/uL RBC 4.83 (4.5-5.9) X10^6/uL Hgb 14.0 (13.5-17.5) g/dL Hct 41.1 (41-53) % MCV 85.0 (80-100) fL MCH 28.9 (26-34) PG MCHC 34.0 (30-36) % RDW 13.6 (11.6-14.8) % Plt Count 215 (150-400) X10^3/uL Neut % (Auto) 64.7 (50-75) % Lymph % (Auto) 24.9 L (25-40) % Tompkins % (Auto) 8.3 (3-14) % Eos % (Auto) 1.2 L (2-4) % Baso % (Auto) 0.9 (0-2) % Neut # (Auto) 6500 (8261-5484) /uL Lymph # (Auto) 2500 (8976-3779) /uL Tompkins # (Auto) 800 (0-900) /uL Eos # (Auto) 100 (0-450) /uL Baso # (Auto) 100 (0-100) /uL Sodium 135 L (137-145) mmol/L Potassium 3.8 (3.4-5.1) mmol/L Chloride 101 (98-107) mmol/L Carbon Dioxide 24 (22-32) mmol/L BUN 19 (9-20) mg/dL Creatinine 0.75 (0.66-1.25) mg/dL Estimated GFR > 60 (>60) mL/min BUN/Creatinine Ratio 25.3 H (6-22) Glucose 94 (70-100) mg/dL Calcium 8.9 (8.4-10.2) mg/dL Total Bilirubin 0.6 (0.2-1.3) mg/dL AST 22 (17-59) IU/L ALT 29 (<50) IU/L Alkaline Phosphatase 98 (38-126) U/L Total Creatine Kinase 271 H (55-170) U/L CK-MB (CK-2) TNP CK-MB (CK-2) Rel Index TNP Troponin I < 0.012 (0.01-0.034) ng/mL Total Protein 7.6 (6.3-8.2) g/dL Albumin 4.4 (3.5-5.0) g/dL Globulin 3.2 (1.7-4.1) g/dL Albumin/Globulin Ratio 1.4 (1.0-2.8) ECG Data Attestation: I personally reviewed and interpreted this ECG as follows: Interpretation: Heart rate 71, sinus rhythm with left bundle branch block, no Sgarbossa criteria present, EKG is consistent with his previous EKG on record/no change. MDM Narrative Medical decision making narrative: This is a well-appearing 56-year-old male who presents with concern for an episode of left hand cramping left antecubital pain and a blue discoloration of his forearm associated with this. Patient's history is notable for previous spinal fusion surgery of the C-spine and a history of similar episodes of cramping prior to having the surgery done. Exam today is unremarkable, fairly low suspicion for cardiac etiology but because he described a persistent intense pain in his arm basic cardiac workup to include EKG, troponins/cardiac enzymes as well as CBC CMP to evaluate for electrolytes is performed. These all look okay, he does have a slight bump in his creatinine kinase but no troponin findings, it has been greater than 3 hours since the episode, and repeat troponin is not obtained. Imaging is not obtained as patient has no chest pain or respiratory symptoms, his EKG is consistent with his baseline EKG does show a left bundle branch block. Patient's electrolytes were within normal range slightly low sodium at 135.. Patient is counseled to follow up closely with his PCP, per form light duty at work over the next 1-2 days or activity as tolerated, work note is provided today. Monitor for new or worsening symptoms. Return precautions provided, follow-up plan discussed, all questions answered. <Janett Gregory, DO - Last Filed: 08/28/22 07:30> Lab Data Labs: Lab Results 08/26/22 08/26/22 Range/Units 17:27 17:27 WBC 10.1 (4.5-11.0) X10^3/uL RBC 4.83 (4.5-5.9) X10^6/uL Hgb 14.0 (13.5-17.5) g/dL Hct 41.1 (41-53) % MCV 85.0 (80-100) fL MCH 28.9 (26-34) PG MCHC 34.0 (30-36) % RDW 13.6 (11.6-14.8) % Plt Count 215 (150-400) X10^3/uL Neut % (Auto) 64.7 (50-75) % Lymph % (Auto) 24.9 L (25-40) % Tompkins % (Auto) 8.3 (3-14) % Eos % (Auto) 1.2 L (2-4) % Baso % (Auto) 0.9 (0-2) % Neut # (Auto) 6500 (4707-6108) /uL Lymph # (Auto) 2500 (4310-5822) /uL Tompkins # (Auto) 800 (0-900) /uL Eos # (Auto) 100 (0-450) /uL Baso # (Auto) 100 (0-100) /uL Sodium 135 L (137-145) mmol/L Potassium 3.8 (3.4-5.1) mmol/L Chloride 101 (98-107) mmol/L Carbon Dioxide 24 (22-32) mmol/L BUN 19 (9-20) mg/dL Creatinine 0.75 (0.66-1.25) mg/dL Estimated GFR > 60 (>60) mL/min BUN/Creatinine Ratio 25.3 H (6-22) Glucose 94 (70-100) mg/dL Calcium 8.9 (8.4-10.2) mg/dL Total Bilirubin 0.6 (0.2-1.3) mg/dL AST 22 (17-59) IU/L ALT 29 (<50) IU/L Alkaline Phosphatase 98 (38-126) U/L Total Creatine Kinase 271 H (55-170) U/L CK-MB (CK-2) TNP CK-MB (CK-2) Rel Index TNP Troponin I < 0.012 (0.01-0.034) ng/mL Total Protein 7.6 (6.3-8.2) g/dL Albumin 4.4 (3.5-5.0) g/dL Globulin 3.2 (1.7-4.1) g/dL Albumin/Globulin Ratio 1.4 (1.0-2.8) Discharge Plan Departure Patient Disposition: Home Clinical Impression: Cramp of muscle of left upper extremity Activity Restrictions/Additional Instructions: *You have been diagnosed with arm muscle cramp *What to do: *Please continue to take your regular medications as directed. [No] New medication prescriptions sent to your pharmacy: [ ] [ ] New medication written as a paper prescription [No] No new medications given *Please follow up with your primary care provider in 2-3 days, call for an appointment. Let them know you were seen in the Emergency Department and that we ask that you be seen in follow up. We will electronically transmit a record of today's note if your PCP is in our system. After discussion we did check some basic labs today to make sure that your electrolytes were okay as these can cause muscle cramping and we also checked on cardiac enzymes they were looking okay as well I am not suspicious that your heart muscle was the cause of your left arm pain today. 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 I do recommend that you follow-up with your primary care provider and consider seeing your surgery team as you did have somewhat similar symptoms previous to having her back surgery last fall/summer. Otherwise please monitor for new or worsening symptoms and do not hesitate to seek re-evaluation if these develop. *If you do not have a primary care provider please contact the [facility] Resource line at [phone]. They will ask some questions about your medical history and help get you set up with a doctor in the community. *Return to Emergency Department if you should have any new, worsening or concerning symptoms, such as [fever greater than 101 F, shaking chills, worsening pain, persistent vomiting or other bothersome symptoms] Prescriptions: No Action meclizine 25 mg tablet 25 mg PO TID PRN (Reason: dizziness) Qty: 10 0RF Referrals: Indiana Jones MD [Primary Care Provider] - Stand Alone Forms: Patient Portal/API, Work Release Note
[2022-08-26 17:34] LABS: Add Manual Diff / Slide Review NO; Basophils Absolute Auto 100 /uL (0-100); Basophils Percent Auto 0.9 % (0-2); Eosinophils Absolute Auto 100 /uL (0-450); Eosinophils Percent Auto 1.2 % (2-4); Hematocrit 41.1 % (41-53); Lymphocytes Absolute Auto 2500 /uL (1100-4500); Lymphocytes Percent Auto 24.9 % (25-40); Mean Corpuscular Hemoglobin 28.9 PG (26-34); Monocytes Absolute Auto 800 /uL (0-900); Monocytes Percent Auto 8.3 % (3-14); Neutrophils Absolute Auto 6500 /uL (1500-7000); Neutrophils Percent Auto 64.7 % (50-75); Platelet Count 215 X10^3/uL (150-400); Red Blood Cell Count 4.83 X10^6/uL (4.5-5.9); Red Cell Distribution Width 13.6 % (11.6-14.8); White Blood Cell Count 10.1 X10^3/uL (4.5-11.0)
[2022-08-26 17:47] LABS: Alanine Aminotransferase 29 IU/L (<50); Albumin 4.4 g/dL (3.5-5.0); Albumin Globulin Ratio 1.4 (1.0-2.8); Alkaline Phosphatase 98 U/L (38-126); Aspartate Aminotransferase 22 IU/L (17-59); BUN Creatinine Ratio 25.3 (6-22); Bilirubin Total 0.6 mg/dL (0.2-1.3); Blood Urea Nitrogen 19 mg/dL (9-20); Calcium 8.9 mg/dL (8.4-10.2); Carbon Dioxide 24 mmol/L (22-32); Chloride 101 mmol/L (98-107); Creatine Kinase 271 U/L (55-170); Estimated Glomerular Filt Rate > 60 mL/min (>60); Globulin 3.2 g/dL (1.7-4.1); Glucose 94 mg/dL (70-100); HEMOLYSIS < 15 (0-50); Potassium 3.8 mmol/L (3.4-5.1); Sodium 135 mmol/L (137-145); Total Protein 7.6 g/dL (6.3-8.2)
[2022-08-26 17:59] LABS: Troponin I < 0.012 ng/mL (0.01-0.034)
[2022-08-26 18:46] VITALS: BP 135/85; PULSE 77; RESP 18; O2SAT 99
== END 2022-08-26 18:48 | disposition home or self-care (01) ==
PROVIDERS: Emergency Provider Student in an Organized Health Care Education/Training Program; PCP Student in an Organized Health Care Education/Training Program
DX: R25.2 Cramp and spasm (principal); M79.602 Pain in left arm
CPT/HCPCS: 36415; 80053; 82550; 84484; 85025; 93005; 99281; 99284

== ENCOUNTER 2024-08-12 05:30 | Emergency (ER) | payer OTHER, SELFPAY ==
--- NOTE | 2024-08-12 05:50 | ED_ITS ---
HPI - General Adult General Chief complaint: Neck Pain/Injury Stated complaint: Neck pain Time Seen by Provider: 08/12/24 05:37 History of Present Illness HPI narrative: 58-year-old male with history of spinal ORIF cervical in the past, was lifting cement bags yesterday, now complains of posterior upper right and left trapezius area muscular pain. Has pain with lateral rotation to the left or the right of his head. No midline pain. No numbness or tingling or weakness to his arms. His tried ibuprofen yesterday, no other treatments tried. He has had muscle relaxants in the past. His is here to drive him home. Related Data Previous Rx's Medication Instructions Recorded meclizine 25 mg tablet 25 mg PO TID PRN dizziness #10 tabs 07/07/22 hydrocodone 5 mg-acetaminophen 325 1 tab PO Q6H PRN pain #14 tabs 08/12/24 mg tablet methocarbamol 500 mg tablet 500 mg PO TID 7 days #21 tabs 08/12/24 naproxen 500 mg tablet 500 mg PO BID 7 days #14 tabs 08/12/24 Allergies Allergy/AdvReac Type Severity Reaction Status Date / Time No Known Drug Allergies Allergy Verified 08/26/22 15:03 Patient History Social History Smoking Status: Never smoker alcohol intake frequency: holidays/special occasions only Exam Narrative Exam Narrative: GENERAL: Well-developed patient, in mild distress. HEAD: Atraumatic. Normocephalic. EYES: Pupils equal round and reactive. Extraocular motions intact. No scleral icterus. No injection or drainage. ENT: Nose without bleeding, purulent drainage. Throat without erythema, tonsillar hypertrophy or exudate. Airway patent. NECK: Trachea midline. Non tender CARDIOVASCULAR: Regular rate and rhythm without murmurs, gallops, or rubs. RESPIRATORY: Clear to auscultation. Breath sounds equal bilaterally. No wheezes, rales, or rhonchi. GASTROINTESTINAL: Abdomen soft, non-tender, nondistended. EXTREMITIES: No edema or joint tenderness. BACK: Nontender without deformity or crepitance. No flank tenderness. NEURO: AOx3. Motor functions grossly nonfocal SKIN: No rash or erythema of visible areas Initial Vital Signs Initial Vital Signs: Vital Signs Temperature 97.9 F 08/12/24 05:53 Pulse Rate 86 08/12/24 05:53 Respiratory Rate 16 08/12/24 05:53 Blood Pressure 161/85 H 08/12/24 05:53 Pulse Oximetry 98 08/12/24 05:53 Oxygen Delivery Method Room Air 08/12/24 05:53 Course Orders Ordered: Discontinued Medications Hydrocodone Bitart/Acetaminophen (Hydrocodone/Acet 5/325 Tablet) 1 tab PO NOW ONE Stop: 08/12/24 06:01 Last Admin: 08/12/24 06:29 Dose: 1 tab Documented By: XIMENA Methocarbamol (Methocarbamol 500 Mg Tablet) 500 mg PO NOW ONE Stop: 08/12/24 06:02 Last Admin: 08/12/24 06:29 Dose: 500 mg Documented By: XIMENA Naproxen (Naproxen 250 Mg Tablet) 500 mg PO NOW ONE Stop: 08/12/24 06:02 Last Admin: 08/12/24 06:29 Dose: 500 mg Documented By: XIMENA Vital Signs Vital signs: Vital Signs - 8 hr 08/12/24 05:53 Temperature 97.9 F Pulse Rate 86 Respiratory Rate 16 Blood Pressure 161/85 H Pulse Oximetry 98 Oxygen Delivery Method Room Air Medical Decision Making [facility] Narrative Medical decision making narrative: 58-year-old male with history of prior cervical fusion surgery, ORIF, was lifting cement bags yesterday, complains of upper back pain, has tenderness bilateral superior aspect both trapezius muscles. Trial of muscle relaxant. Pain medications. Discussed CT spinal imaging, defer for now. Trial of medications. Home with . Return precautions discussed. Discharge Plan Departure Patient Disposition: Home Clinical Impression: Strain of left trapezius muscle, Strain of right trapezius muscle Activity Restrictions/Additional Instructions: History of prior cervical neck surgery with internal rods placed, recent lifting of cement bags, with bilateral upper trapezius area muscle discomfort and tenderness on examination. No posterior midline tenderness. We did discuss advanced imaging such as CT scan cervical spine imaging, we will defer for now. Trial of anti-inflammatory pain medication, muscle relaxant, analgesics. First doses of naproxen given in the emergency department, with prescription sent to your pharmacy. First doses of Robaxin/methocarbamol muscle relaxant given in the emergency department, with prescription sent to your pharmacy. First doses of hydrocodone with acetaminophen given in the emergency department, with pre scription sent to your pharmacy. Consider recheck with your regular doctor later this week. Return to this/nearest emergency department for any change worsening symptoms or any concerns prior. Prescriptions: New methocarbamol 500 mg tablet 500 mg PO TID 7 Days Qty: 21 0RF naproxen 500 mg tablet 500 mg PO BID 7 Days Qty: 14 0RF hydrocodone-acetaminophen 5-325 mg tablet 1 tab PO Q6H PRN (Reason: pain) Qty: 14 0RF No Action meclizine 25 mg tablet 25 mg PO TID PRN (Reason: dizziness) Qty: 10 0RF Referrals: Indiana Jones MD [Primary Care Provider] - Stand Alone Forms: Patient Portal/API/Survey, Work Release Note
[2024-08-12 05:53] VITALS: BP 161/85; PULSE 86; RESP 16; TEMP 36.6; O2SAT 98; BMI 39.5
[2024-08-12] MEDS: HYDROCODONE/ACET 5/325 TABLET 1 TAB PO (06:29)
[2024-08-12] MEDS: NAPROXEN 250 MG TABLET 500 MG PO (06:29)
[2024-08-12] MEDS: methocarbamoL 500 MG TABLET PO (06:29)
[2024-08-12 06:52] VITALS: BP 139/92; PULSE 85; RESP 14; O2SAT 100
== END 2024-08-12 06:54 | disposition home or self-care (01) ==
PROVIDERS: Emergency Provider Emergency Medicine; PCP Student in an Organized Health Care Education/Training Program
DX: S46.811A Strain of other muscles, fascia and tendons at shoulder and upper arm level, right arm, initial encounter (principal); S46.812A Strain of other muscles, fascia and tendons at shoulder and upper arm level, left arm, initial encounter; X50.0XXA Overexertion from strenuous movement or load, initial encounter
CPT/HCPCS: 99283